=== PATIENT | female | born 1960 | race Caucasian/White ===

== ENCOUNTER 2019-09-28 14:15 | Outpatient (CLI) | payer BC, SELFPAY ==
--- NOTE | 2019-09-28 14:23 | ECG_ITS ---
Measurements Intervals [place] Rate: 73 P: 39 LA: 178 QRS: -4 QRSD: 97 T: 30 QT: 378 QTc: 418 Interpretive Statements SINUS RHYTHM LOW QRS VOLTAGE IN PRECORDIAL LEADS BORDERLINE ECG Electronically Signed On 09-28-2019 14:50:55 MULTIGRAPH OPERATOR by jL Stephens D.O.
[2019-09-28 15:06] LABS: Basophils Percent Auto 0.4 % (0.2-1.2); Eosinophils Absolute Auto 0.2 K/mm3 (0-0.3); Eosinophils Percent Auto 2.4 % (0-4.4); Hematocrit 38.8 % (37.0-47.0); Hemoglobin 12.9 g/dL (12.0-15.0); Immature Granulocyte Absolute 0.02 K/mm3 (0.00-0.031); Immature Granulocyte Percent A 0.3 % (0-0.5); Lymphocytes Absolute Auto 2.98 K/mm3 (0.9-3.2); Lymphocytes Percent Auto 39.6 % (18.3-44.2); Mean Corpuscular HGB Conc 33.2 g/dl (32-36); Mean Corpuscular Hemoglobin 29.1 pg (26-34); Mean Corpuscular Volume 87.6 fl (80-100); Mean Platelet Volume 10.5 fl (7.4-10.4); Monocytes Absolute Auto 0.6 K/mm3 (0.1-0.6); Monocytes Percent Auto 8.4 % (2.6-8.5); Neutrophils Absolute Auto 3.7 K/mm3 (1.3-6.7); Neutrophils Percent Auto 48.9 % (45.5-73.1); Platelet Count Result 285 k/mm3 (150-375); Red Blood Count 4.43 M/mm3 (4.2-5.4); Red Cell Distribution Width 12.2 % (11.5-14.5); White Blood Count 7.5 K/mm3 (4.5-10.0)
[2019-09-28 15:12] LABS: Alanine Aminotransferase 36 U/L (4-35); Albumin Level 4.1 g/dL (3.5-5.1); Alkaline Phosphatase 74 U/L (38-126); Aspartate Amino Transferase 34 U/L (14-36); Bilirubin,Total 0.2 mg/dL (0.2-1.3); Blood Urea Nitrogen 18 mg/dL (7-17); Calcium 9.6 mg/dL (8.4-10.2); Carbon Dioxide 27 mmol/L (22-30); Chloride 100 mmol/L (98-107); Estimated Glomerular Filt Rate > 60; Glucose 111 mg/dL (65-105); Potassium 3.8 mmol/L (3.4-5.0); Sodium 140 mmol/L (137-145)
== END 2019-09-28 14:16 | disposition home or self-care (01) ==
LOC: ANHSURGERY 14:23
PROVIDERS: PCP Family Medicine; Visit Provider Student in an Organized Health Care Education/Training Program
DX: R10.2 Pelvic and perineal pain (principal); I10 Essential (primary) hypertension; R94.31 Abnormal electrocardiogram [ECG] [EKG]
CPT/HCPCS: 36415; 80053; 85025; 86850; 86900; 86901; 93005

== ENCOUNTER 2019-10-01 02:59 | Day surgery (SDC) | payer BC, SELFPAY ==
[2019-09-27 15:01] VITALS: BMI 39.9
[2019-10-01] VITALS (16 sets, daily range): BP systolic 114–145; BP diastolic 50–84; PULSE 60–91; RESP 15–21; TEMP 36.2–37; O2SAT 93–100
--- NOTE | 2019-10-01 08:33 | PM.IMHP ---
H&P: HPI History of Present Illness Chief complaint: pelvic pain,thick endometrium,uterine polyp Narrative: Meera Sinha is a 59 year old female who presents with pelvic pain. Pt initially presented to the ER for pelvic pain and received a pelvic US that showed abnormally thickened endometrium and a uterine polyp. Endometrial biopsy showed benign polyp and no hyperplasia. Pt continues to have pelvic pain and would like definitive management. Review of Systems Review of Systems: All systems reviewed & are unremarkable except as noted in HPI and below Meds Home Medications and Allergies Home Medications Medication Instructions Recorded Confirmed Type citalopram 20 mg PO DAILY 09/27/19 09/27/19 History lisinopril 10 mg PO DAILY 09/27/19 09/27/19 History Allergies Allergy/AdvReac Type Severity Reaction Status Date / Time acetaminophen Allergy Mild GET Verified 09/27/19 14:52 LIGHTHEADED codeine Allergy Mild DIZZINESS Verified 09/27/19 14:52 Penicillins Allergy Mild HIVES,ITCHI Verified 09/27/19 14:53 NG HYDROCODONE BIT Allergy Mild GET Uncoded 09/27/19 14:54 LIGHTHEADED AND NAUSEA Exam Const: General: comfortable and no acute distress Neck: Thyroid: thyroid normal Resp: Effort & Inspection: normal respiratory effort Auscultation: clear to auscultation bilaterally Cardio: Rate: regular rate Rhythm: regular rhythm GI: Inspection: non-distended GI Palp: Yes Soft to palpation, No Tenderness to palpation present (GI) and No Guarding due to palpation present (GI) Auscultation: normal bowel sounds : Speculum Exam - Vagina: normal appearance of the vagina Speculum Exam - Cervix: normal appearance of the cervix Bimanual exam- vagina & uterus: No Cervical tenderness present and tender Other: bimanual exam limited by body habitus Extrem: General: normal to inspection Psych: Mental Status: mental status grossly normal Affect: normal affect Assessment and Plan Assessment and plan (1) Pelvic pain: Code(s): R10.2 - Pelvic and perineal pain Status: Acute (2) Fibroid uterus: Code(s): D25.9 - Leiomyoma of uterus, unspecified Status: Acute Assessment and Plan: uterus measuring 8x3.4x5.2 cm with 5cm anterior fibroid pt c/o persistent pelvic pain desires defintive management, plan for robotic assisted TLH/BSO
[2019-10-01] MEDS: LACTATED RINGERS 1,000 ML 30 ML IV CONT ×3 (11:10→15:30)
--- NOTE | 2019-10-01 11:11 | P.PNAN_ITS ---
Anes - Initial Pre Proc Eval Procedure: Operation Date: 10/01/19 12:00 Proposed Procedures p Robotic Assisted Total Laparoscopic Hysterectomy, Bilateral Salpingo- Oophorectomy - Alejo Santos MD Date/Time: 10/01/19 11:11 Surgeon: Alejo Santos MD Pre Op Diagnosis: pelvic pain,thick endometrium,uterine polyp Patient Data Age: 59 Gender: F Height: 5 ft 2 in Weight: 99.1 kg Allergies Allergy/AdvReac Type Severity Reaction Status Date / Time acetaminophen Allergy Mild GET Verified 09/27/19 14:52 LIGHTHEADED codeine Allergy Mild DIZZINESS Verified 09/27/19 14:52 Penicillins Allergy Mild HIVES,ITCHI Verified 09/27/19 14:53 NG HYDROCODONE BIT Allergy Mild GET Uncoded 09/27/19 14:54 LIGHTHEADED AND NAUSEA Home Medications Medication Instructions Recorded Confirmed Type citalopram 20 mg PO DAILY 09/27/19 10/01/19 History lisinopril 10 mg PO DAILY 09/27/19 10/01/19 History Patient hx anesthesia problems: none Family hx anesthesia problems: none [facility] Past Medical History Medical History Depression Hypertension Morbid obesity Anes - Eval Final PreProcedure Day of Procedure 10/01/19 11:11 Patient weight: morbidly obese Heart: regular rate and rhythm Lungs: clear to auscultation Airway: Mallampati scale class II Neurological: alert and oriented Last oral intake: >/= 8 hours ASA classification: III Emergent: no Anesthetic plan: proceed Anesthesia type and monitoring: general ETT and standard monitoring Informed Consent: The patient's anesthetic plan and its attendant risks and benefits were discussed with the patient/family/POA. Questions were solicited and answers provided to the satisfaction of the patient/family/POA.
[2019-10-01] MEDS: CLINDAMYCIN 900 MG/NS 50 ML 900 MG/50 ML PIGGYBACK 50 MG IVPB (12:07)
[2019-10-01] MEDS: LIDO 1%/EPINEPHRINE 1:100,000 20 ML VIAL INFILTRATE (13:00)
--- NOTE | 2019-10-01 14:32 | SUR.OPER ---
[id number]
--- NOTE | 2019-10-01 14:46 | PM.PROC ---
Procedure Note - Detailed Date of procedure: 10/01/19 Pre-op diagnosis: pelvic pain,thick endometrium,uterine polyp Procedure performed: Robotic assisted total laparoscopic hysterectomy bilateral salpingo-oophorectomy, 45 min of lysis of adhesions, cystoscopy Description of procedure: PROCEDURE IN DETAIL: After the patient was appropriately consented she was taken to the operating room where she was transferred to the table in a dorsal supine position. General anesthesia was then induced with endotracheal intubation. The patient was transferred to a dorsal lithotomy position using adjustable yellow-fin stirrups. Her position was adjusted for appropriate support of her lower back and lower extremities. The patient was prepped and draped. A transurethral hussein catheter was place. The cervix was sequentially dilated and a 8cm FRANCOISE uterine manipulator placed in typical fashion about a 3 cm AMARILIS ring. Gloves were changed. After confirmation of a functioning orogastric tube, lidocaine was injected at Rodriguez's point in the LUQ and a 5mm incision was made. A 5mm Optiview trocar was then inserted into the abdominal cavity under direct visualization and done so without complication. The abdomen was then insufflated with approximately 2-3L of CO2 establishing a pneumoperitoneum and the patient was placed in Trendelenburg position. Just above the umbilicus in the midline, a 10mm incision made after injection of lidocaine and a 8mm bladeless trocar advanced into the abdominal cavity under direct visualization without incident. We subsequently placed two robotic ports in a similar fashion, one in the left mid-quadrant and one in the right, 10cm lateral to the midline port. The robot was then docked. Upon evaluation of the pelvis, dense omental adhesions were noted along the posterior aspect of the uterus. Extensive lysis of adhesions was performed using blunt dissection and monopolar scissors. The uterus was also noted to be adherent to the anterior abdominal wall at the right cornual aspect near the insertion of the right fallopian tube. These adhesions were taken down bluntly. A large anterior uterine fibroid was noted to extend in to the right broad ligament. The Left round ligament was divided and the pararectal and paravesicle spaces developed, identifying the course of the ureter. The infundibulopelvic ligaments were skeletonized, triply coagulated and then transected with monopolar malik away from the course of the ureter. The posterior aspect of the broad ligament was then skeletonized down to the level of the internal cervical os, mobilizing the ureter laterally. The bladder flap was then created sharply. The ipsilateral uterine artery was skeletonized, bipolar cauterized and transected. A similar procedure was performed on the contralateral side, developing the pelvic spaces, coagulating and dividing the IP away from the ureter, completing the bladder flap, and skeletonizing, ligating, and dividing the uterine artery on this side. This dissection was done carefully as the uterine fibroid had distorted normal anatomy. The dissection was perfomed intamitely close the the ureter. The ureter was dissected out to the level of the uterine arter with direct visualization the whole time. We ensured the vaginal pneumo-occluder balloon was insufflated and made a circumferential colpotomy using monopolar current. The uterus, cervix, bilateral tubes and ovaries were then delivered transvaginally. I then re-approximated the colpotomy with a single interuppted 0-vicryl at the left apex and running #1 PDO Barbed suture in 2 layers. Following this dissection, the abdomen and pelvis were copiously irrigated and all surgical sites found to be hemostatic. The vaginal cuff was covered with Hemoderm to ensure hemostasis. Skin sites were reapproximated with 4-0 Vicryl in a subcuticular fashion. Dermabond was placed. The patient then received methylene blue IV in preparation of cystoscopy to evaluate taylor
[2019-10-01] MEDS: DEXTROSE 5%/0.45% SOD CHL 1,000 ML 125 ML IV CONT (16:43)
[2019-10-01] MEDS: IBUPROFEN IV 800 MG/200 ML 800 MG/200 ML BAG 400 MG IVPB (17:55)
[2019-10-01] MEDS: IBUPROFEN 600 MG TABLET PO (23:26)
[2019-10-02 04:46] VITALS: BP 119/56; PULSE 64; RESP 18; TEMP 36.8
[2019-10-02 05:35] LABS: Basophils Percent Auto 0.1 % (0.2-1.2); Hematocrit 35.8 % (37.0-47.0); Hemoglobin 11.9 g/dL (12.0-15.0); Immature Granulocyte Absolute 0.05 K/mm3 (0.00-0.031); Immature Granulocyte Percent A 0.3 % (0-0.5); Lymphocytes Absolute Auto 1.76 K/mm3 (0.9-3.2); Lymphocytes Percent Auto 12.3 % (18.3-44.2); Mean Corpuscular HGB Conc 33.2 g/dl (32-36); Mean Corpuscular Hemoglobin 29.5 pg (26-34); Mean Corpuscular Volume 88.8 fl (80-100); Mean Platelet Volume 10.5 fl (7.4-10.4); Neutrophils Absolute Auto 11.5 K/mm3 (1.3-6.7); Neutrophils Percent Auto 80.3 % (45.5-73.1); Platelet Count Result 276 k/mm3 (150-375); Red Blood Count 4.03 M/mm3 (4.2-5.4); Red Cell Distribution Width 12.5 % (11.5-14.5); White Blood Count 14.3 K/mm3 (4.5-10.0)
[2019-10-02 05:54] LABS: Blood Urea Nitrogen 11 mg/dL (7-17); Calcium 9.4 mg/dL (8.4-10.2); Carbon Dioxide 27 mmol/L (22-30); Chloride 103 mmol/L (98-107); Estimated CRCL calculation 96 ml/min; Estimated Glomerular Filt Rate > 60; Glucose 115 mg/dL (65-105); Potassium 4.4 mmol/L (3.4-5.0); Sodium 138 mmol/L (137-145)
[2019-10-02] MEDS: IBUPROFEN 600 MG TABLET PO (07:31)
[2019-10-02] MEDS: SIMETHICONE 80 MG TAB.CHEW PO (07:32)
[2019-10-02] MEDS: CITALOPRAM HYDROBROMIDE 20 MG TABLET PO (07:33)
[2019-10-02] MEDS: DOCUSATE SODIUM 100 MG CAPSULE PO (07:33)
--- NOTE | 2019-10-02 07:36 | PM.DS ---
DS: Diagnosis Admitting Diagnosis Admitting Diagnosis: Pelvic and perineal pain Discharge Diagnosis (1) Fibroid uterus: Code(s): D25.9 - Leiomyoma of uterus, unspecified Status: Acute DS: Summary Hospital Course Hospital Course: pt was admitted after underoing robot assisted TLH/BSO for pelvic pain and uterine fribroids. The procedure was uncomplicated. The patient's pain was well controlled overnight. Her urine output was adequate. Catheter was removed and she was able to void spontaneously. She is ambulating. She denies N/V. She reports passing flatus. Status at Discharge Functional status at discharge: independent ambulation Overall status at discharge: patient is progressing back to baseline Time Spent with Patient Time attestation: Total time spent providing and/or coordinating discharge services: Time spent: Less than 30 minutes Exam Const: General: comfortable and no acute distress Resp: Effort & Inspection: normal respiratory effort Auscultation: clear to auscultation bilaterally Cardio: Rate: regular rate Rhythm: regular rhythm GI: Inspection: non-distended GI Palp: Yes Soft to palpation, No Firmness to palpation present (GI), Yes Tenderness to palpation present (GI) (midly tender over incisions) and No Guarding due to palpation present (GI) Auscultation: normal bowel sounds Urinary Catheter: Urinary Catheter: urine clear Skin: General skin exam: normal color Extrem: General: normal to inspection Psych: Mental Status: mental status grossly normal Affect: normal affect DS: Data Data Completed and Pending Pending studies at discharge: Pending at discharge 10/01/19 14:04 Surgical [PTH] Routine Labs on day of discharge: Labs from last 24 hours 10/02/19 10/02/19 05:04 05:04 WBC 14.3 H RBC 4.03 L Hgb 11.9 L Hct 35.8 L MCV 88.8 MCH 29.5 MCHC 33.2 RDW 12.5 Plt Count 276 MPV 10.5 H Immature Gran % (Auto) 0.3 Neut % (Auto) 80.3 H Lymph % (Auto) 12.3 L [place] % (Auto) 7.0 Eos % (Auto) 0.0 Baso % (Auto) 0.1 L Lymph # (Auto) 1.76 [place] # (Auto) 1.0 H Eos # (Auto) 0.0 Baso # (Auto) 0.0 Abs Immat Gran (auto) 0.05 H Absolute Neuts (auto) 11.5 H Absolute Nucleated RBC 0.0 Nucleated RBC % 0.0 Sodium 138 Potassium 4.4 Chloride 103 Carbon Dioxide 27 BUN 11 D Creatinine 0.60 L Estim Creat Clear Calc 96 Estimated GFR > 60 Glucose 115 H Calcium 9.4 Discharge Plan Discharge Patient Disposition: Home, Self-Care Patient Instructions: Laparoscopic Hysterectomy (DC) Follow-up/Referrals: Alejo Santos MD [Physician] - 2 Weeks Discharge Medications: New oxycodone-acetaminophen 5-325 mg Tablet 1 tablet PO Q4H PRN (Reason: Pain Rated 7-10) Qty: 30 RF: 0 docusate sodium 100 mg Capsule 100 mg PO BID Qty: 60 RF: 0 ibuprofen 600 mg Tablet 600 mg PO Q6H PRN (Reason: Cramping) Qty: 30 RF: 0 Continued citalopram 20 mg Tablet 20 mg PO DAILY RF: 0 lisinopril 10 mg Tablet 10 mg PO DAILY RF: 0 Primary Care Provider: Dominic,Henry Sawyer Attending physician on admission: Alejo Santos
[2019-10-02 08:00] VITALS: BP 98/34; PULSE 66; RESP 18; TEMP 36.8
[2019-10-02 09:00] VITALS: BP 106/56
--- NOTE | 2019-10-02 09:49 | WPDANESPN ---
Anes - Prog Note Post-Op Date/Time: 10/02/19 09:49 Cardiovascular status: normal Respiratory status: normal Airway patency: baseline Mental status: baseline Post-Op hydration status: normal Vital Signs: Last Vital Signs Temp 36.8 C 10/02/19 04:46 Pulse 64 10/02/19 04:46 Resp 18 10/02/19 04:46 BP 119/56 L 10/02/19 04:46 Pulse Ox 99 10/01/19 18:00 I/O: Intake & Output 10/01/19 10/02/19 10/02/19 23:59 07:59 15:59 Intake Total 275 2200 Output Total 175 3625 Balance 100 -1425 Laboratory Tests 10/02/19 05:04 10/02/19 05:04 10/02/19 10/02/19 05:04 05:04 WBC 14.3 H RBC 4.03 L Hgb 11.9 L Hct 35.8 L MCV 88.8 MCH 29.5 MCHC 33.2 RDW 12.5 Plt Count 276 MPV 10.5 H Immature Gran % (Auto) 0.3 Neut % (Auto) 80.3 H Lymph % (Auto) 12.3 L [place] % (Auto) 7.0 Eos % (Auto) 0.0 Baso % (Auto) 0.1 L Lymph # (Auto) 1.76 [place] # (Auto) 1.0 H Eos # (Auto) 0.0 Baso # (Auto) 0.0 Abs Immat Gran (auto) 0.05 H Absolute Neuts (auto) 11.5 H Absolute Nucleated RBC 0.0 Nucleated RBC % 0.0 Sodium 138 Potassium 4.4 Chloride 103 Carbon Dioxide 27 BUN 11 D Creatinine 0.60 L Estim Creat Clear Calc 96 Estimated GFR > 60 Glucose 115 H Calcium 9.4 Post-procedural complaints: none Patient Feedback: Patient satisfied with anesthetic care.
--- NOTE | 2019-10-02 10:42 | PC.NURSE ---
Discharge instructions given to pt. including instructions to call Dr. Sanchez office on Friday and make appt. for [address] Sanchez. at side. No questions or concerns verbalized. Very pleasant and cooperative.
[2019-10-02 11:45] VITALS: BP 146/74; PULSE 74; RESP 18; TEMP 36.8
[2019-10-02 12:00] VITALS: BP 106/68
== END 2019-10-02 12:05 | disposition home or self-care (01) ==
LOC: ANHSURGERY 10:20 → ANHOB2 16:12
PROVIDERS: PCP Family Medicine; Visit Provider Student in an Organized Health Care Education/Training Program
PROC: (CPT 58552; principal; 2019-10-01 12:00)
DX: D25.1 Intramural leiomyoma of uterus (principal); N80.0 Endometriosis of uterus; D27.1 Benign neoplasm of left ovary; D27.0 Benign neoplasm of right ovary; N73.6 Female pelvic peritoneal adhesions (postinfective); I10 Essential (primary) hypertension; F32.9 Major depressive disorder, single episode, unspecified; E66.01 Morbid (severe) obesity due to excess calories; Z68.41 Body mass index [BMI] 40.0-44.9, adult; R10.2 Pelvic and perineal pain
CPT/HCPCS: 58552; S2900; 36415; 80048; 85025; 88307; 99199; A9270; J0131; J1100; J1170; J1580; J1741; J2250; J2405; J2704; J2710; J3010; J7030; J7120; Q9968

== ENCOUNTER 2024-11-26 09:34 | Emergency (ER) | payer BC, SELFPAY ==
--- NOTE | ~2024-11-26 | CT_ITS ---
Non-contrast Head CT History: Dizziness, blurry vision Technique: Axial non-contrast imaging of the brain was performed. Dose reduction technique was used on this scan by utilizing automated exposure control and iterative reconstruction technique. The dose -length product (DLP) was 605.33 mGy-cm. Findings: There is no evidence of intracranial hemorrhage, mass lesion, or acute infarct. Brain par enchyma appears normal. The ventricles and subarachnoid spaces are normal in size. The calvarium ap pears normal. The visualized paranasal sinuses and mastoid air cells are clear. Impression: No significant abnormality seen. Reviewed, dictated and finalized at location . Impression: No significant abnormality seen.
--- OUTSIDE RECORDS SUMMARY | 2024-11-26 09:37 | XMS_ITS | Clinical Summary ---
Author Organization [facility] Address [address] [place] [address] Care Team Providers Care Electrical And Instrument Engineer Name Role Phone Jose العلي MD Primary Care Provider [phone] Allergies Active Allergy Reactions Criticality Noted Date Comments Codeine Nausea and Vomiting 08/03/2021 Penicillins Hives 08/03/2021 Medications lisinopril 10 MG tablet Take 1 tablet (10 mg total) by mouth daily. Active citalopram 20 MG tablet Take 1 tablet (20 mg total) by mouth daily. Active Active Problems No known active problems Family History Medical History Relation Comments Breast Cancer Other paternal cousin Relation Status Comments Other Alive Social History Tobacco Use Types Packs/Day Years Used Date Smoking Tobacco: Never Smokeless Tobacco: Never Alcohol Use Standard Drinks/Week Comments Not Currently 0 (1 standard drink = 0.6 oz pur e alcohol) Comments Unknown Sex and Gender Information Value Date Recorded Sex Assigned at Not on file Legal Sex Female 9:22 PM CDT Gender Identity Not on file Sexual Orientation Not on file Last Filed Vital Signs Vital Sign Reading Time Taken Comments Blood Pressure 141/64 06/01/2023 10:00 AM CDT Pulse 77 06/01/2023 10:00 AM CDT Temperature 36.3 C (97.4 F) 06/01/2023 8:09 AM CDT Respiratory Rate 10 06/01/2023 10:00 AM CDT Oxygen Saturation 98% 06/01/2023 10:00 AM CDT Inhaled Oxygen Concentration - - Weight 99.8 kg (220 lb) 06/01/2023 8:09 AM CDT Height 154.9 cm (5' 1 ) 06/01/2023 8:09 AM CDT Body Mass Index 41.57 06/01/2023 8:09 AM CDT Plan of Treatment Health Maintenance Due Date Last Done Comments Cervical Cancer Screening Pa p Smear (Age 30 to 64) Every 3 Years 1961 Colorectal Cancer Screening Colonoscopy (10 Years) 1961 Annual Physical 01/10/1964 Hepatitis C 1979 DTaP, Tdap and Td Vaccines ( 1 - Tdap) 01/10/1980 Cervical Cancer Screening Pa p with HPV Testing (Age 30 to 64) Every 5 Years 1991 Cervical Cancer Screening wi th HPV 1991 Pneumococcal Vaccine: 50+ Years (1 of 1 - PCV) 2011 Zoster Vaccines (1 of 2) 2011 RSV Immunization or 60+ Years (1 - Risk 60-74 years 1-dose series) 2021 Mammogram Screening 07/06/2021 07/06/2019 COVID-19 Vaccine (3 - 2023-2 5 season) 2024 04/27/2021, 04/06/2021 Meningococcal B Vaccine Aged Out No l onger eligible based on patient's age to complete this topic Meningococcal Vaccine Aged Out No manoj jason eligible based on patient's age to complete this topic RSV Immunizations Under 20 Months Aged Out No longer eligible b ased on patient's age to complete this topic Procedures Procedure Name Priority Date/Time Associated Diagnosis Comments MG SCREENING W MORRO JUDY DIGI Routine 07/06/2019 8:58 AM PULVERIZER FEEDER Visit for screening mammogram from Last 3 Months or Most Recently Relevant to Health Maintenance Results * MG SCREENING W MORRO JUDY DIGI (07/06/2019 8:58 AM PULVERIZER FEEDER) Anatomical Region Laterality Modality Breast Bilateral Mammography 07/09/2019 9:05 AM PULVERIZER FEEDER Impressions 07/09/2019 9:10 AM PULVERIZER FEEDER IMPRESSION: No interval features to suggest malignancy. In the absence of clinical symptoms, return for annual screening due in one year. RECOMMENDATION: Routine Screening, BILATERAL in 1 year ASSESSMENT: BI-RADS 2 - BENIGN FINDING(S) Interpreted By: Robyn Byrne MD, 07/09/2019 9:05 AM Narrative 07/09/2019 9:10 AM PULVERIZER FEEDER EXAMINATION: BILATERAL SCREENING MAMMOGRAPHY CLINICAL INDICATION: 59 years of age female routine screening. COMPARISON: Screening mammogram(s) 05/28 and 02/22 TECHNIQUE: Digital CC & MLO views. Tomosynthesis imaging acquisition Study read with the assistance of a computer-aided detection system. TISSUE DENSITY: The breast tissue is almost entirely fatty. FINDINGS: Few punctate scattered calcifications. Better visualized partially imaged fatty right axillary lymph node attributed to differences in technique density more posterior tissue. No suspicious grouping of microcalcifications, architectural distortion, or new dominant suspicious nodule 3 dimensionally demonstrated in either breast. Adrianne Watt Arron [employer] MAMMO Final Re sult from Last 3 Months or Most Recently Relevant to Health Maintenance Insurance Care Teams Electrical And Instrument Engineer Relationship Specialty Start Date End Date Jose العلي MD [address] [place] [phone] PCP - General FAMILY PRACTICE 01/02/21
[2024-11-26 10:19] VITALS: BP 161/83; PULSE 93; RESP 20; TEMP 36.6; O2SAT 97
[2024-11-26 10:30] VITALS: BP 140/72; PULSE 94; RESP 19; O2SAT 96
--- NOTE | 2024-11-26 10:58 | ED_ITS ---
HPI - Eye Problem General Chief complaint: Eye Problems Stated complaint: Visual changes Time Seen by Provider: 11/26/24 10:58 Source: patient Mode of arrival: ambulatory Limitations: no limitations History of Present Illness HPI Narrative: This is a 64 year old female who presents to the ED for chief complaint of blurry vision episode that happened just prior to arrival. Patient reports that she was driving down the road when she started having blurry vision to both eyes. It felt like this signs were very brief. She states that she BN to freak out and started feeling dizzy and lightheaded. States that she was able to come to the ER and while waiting to be seen, the blurry vision has resolved. Denies any unilateral or bilateral vision loss. Denies diplopia. Denies numbness, weakness, headache, eye pain, neck pain, chest pain, shortness of breath. Related Data Home Medications ?Medication ?Instructions ?Recorded ?Confirmed ?Last Taken ?Type citalopram 20 mg tablet 20 mg PO DAILY 09/27/19 10/01/19 10/01/19 08:00 History lisinopril 10 mg tablet 10 mg PO DAILY 09/27/19 10/01/19 09/30/19 08:00 History Allergies Allergy/AdvReac Type Severity Reaction Status Date / Time crab Allergy Severe Difficulty Verified 11/26/24 10:24 Breathing codeine Allergy Mild DIZZINESS Verified 11/26/24 10:24 hydrocodone Allergy Mild GETS LIGHT Verified 11/26/24 10:24 HEADED AND NAUSEA Penicillins Allergy Mild HIVES,ITCHI Verified 11/26/24 10:24 NG Review of Systems 2 Review of Systems: All systems as dictated in [facility] Past Medical History Medical History (Updated 11/26/24 @ 12:39 by Edgar Brink PA-C) Depression Morbid obesity Hypertension Exam 2 Narrative: GENERAL: Well-appearing, well-nourished, and in no acute distress. HEAD: Normocephalic, atraumatic. EYES: PERRLA and EOMI. ENT: Nares clear, no rhinorrhea or epistaxis. Mucous membranes moist. Oropharynx without tonsillar hypertrophy exudate or other lesions. NECK: Supple. No adenopathy or masses. CHEST: No respiratory distress. Clear to auscultation. No wheezes rales or rhonchi HEART: Regular rate and rhythm. No murmur heard. Normal peripheral pulses. ABDOMEN: Soft, nontender, nondistended, normal active bowel sounds. MSK: Normal range of motion. No edema. SKIN: Warm, dry, no rash. NEURO: Alert and oriented x4. No focal deficits. PSYCH: Normal mood and affect. Course Vital Signs Vital signs: Vital Signs Temperature 97.8 F 11/26/24 10:19 Pulse Rate 93 11/26/24 10:19 Respiratory Rate 20 11/26/24 10:19 Blood Pressure 161/83 H 11/26/24 10:19 Pulse Oximetry 97 11/26/24 10:19 Oxygen Delivery Room Air 11/26/24 10:19 Temperature 97.8 F 11/26/24 10:19 Pulse Rate 98 11/26/24 12:12 Respiratory Rate 20 11/26/24 12:12 Blood Pressure 170/89 H 11/26/24 12:12 Pulse Oximetry 98 11/26/24 12:12 Oxygen Delivery Room Air 11/26/24 10:19 MDM - Eye Problem MDM Narrative Medical decision making narrative: This is a 64-year-old female who presents to the ED for chief complaint of a episode of blurred vision today. Vitals on arrival are showing elevated blood pressure but otherwise normal. No signs of emergent hypertension today. Lab work and CT brain are negative for any acute or concerning findings today. advised patient to follow-up with PCP regarding her elevated blood pressure. Will prescribe her lisinopril that she took many years ago but stopped on her own. Also encouraged follow-up with eye doctor for an official exam. She does not have any signs or symptoms of stroke today. Low concern for emergent intracranial Or ocular pathology.. Patient will be discharged in stable condition. Supportive measures discussed and return precautions given. Patient is understanding and agreeable with plan for discharge with PCP follow-up. Lab Data 11/26/24 11:16 11/26/24 11:16 Labs: Lab Results 11/26/24 Range/Units 11:16 WBC 9.2 (4.5-10.0) K/mm3 RBC 4.96 (4.2-5.4) M/mm3 Hgb 14.2 (12.0-15.0) g/dL Hct 43.9 (37.0-47.0) % MCV 88.5 (80-100) fl MCH 28.6 (26-34) pg MCHC 32.3 (32-36) g/dl RDW 13.0 (11.5-14.5) % Plt Count 338 (150-375) k/mm3 MPV 10.0 (7.4-10.4) fl Immature Gran % (Auto) 0.4 (0-0.5) % Neut % (Auto) 63.2 (45.5-73.1) % Lymph % (Auto) 25.9 (18.3-44.2) % [place] % (Auto) 8.7 H (2.6-8.5) % Eos % (Auto) 1.4 (0-4.4) % Baso % (Auto) 0.4 (0.2-1.2) % Lymph # (Auto) 2.39 (0.9-3.2) K/mm3 [place] # (Auto) 0.8 H (0.1-0.6) K/mm3 Eos # (Auto) 0.1 (0-0.3) K/mm3 Baso # (Auto) 0.0 (0.0-0.1) K/mm3 Abs Immat Gran (auto) 0.04 H (0.00-0.031) K/mm3 Absolute Neuts (auto) 5.8 (1.3-6.7) K/mm3 Absolute Nucleated RBC 0.000 (0.0-0.012) K/mm3 Nucleated RBC % 0.0 (0.0-0.2) % Sodium 139 (137-145) mmol/L Potassium 4.2 (3.4-5.0) mmol/L Chloride 104 (98-107) mmol/L Carbon Dioxide 27 (22-30) mmol/L Anion Gap 8 (4-12) mmol/L BUN 15 (7-17) mg/dL Creatinine 0.93 (0.7-1.0) mg/dL Estim Creat Clear Calc 61 ml/min Estimated GFR > 60 (59 - ) Glucose 120 H (65-110) mg/dL Calcium 10.1 (8.4-10.2) mg/dL Total Bilirubin 0.3 (0.2-1.3) mg/dL AST 42 H (14-36) U/L ALT 43 H (6-35) U/L Alkaline Phosphatase 89 (38-126) U/L Total Protein 8.0 (6.3-8.2) g/dL Albumin 4.3 (3.5-5.1) g/dL Discharge Plan Discharge Clinical Impression: Blurred vision Patient Disposition: Home Condition: Stable Instructions: Antibiotic Form Additional Instructions: Exam and imaging today are reassuring. Please make sure they are following up with your PCP regarding blood pressure control as well as a shipping helper for vision changes. If you have any new or worsening symptoms please return to the ER for further evaluation. Patient Language: [place] Prescriptions: New lisinopril 10 mg tablet 10 mg PO DAILY Qty: 30 0RF No Action citalopram 20 mg Tablet 20 mg PO DAILY lisinopril 10 mg Tablet 10 mg PO DAILY oxycodone-acetaminophen 5-325 mg Tablet 1 tablet PO Q4H PRN (Reason: Pain Rated 7-10) Qty: 30 0RF docusate sodium 100 mg Capsule 100 mg PO BID Qty: 60 0RF ibuprofen 600 mg Tablet 600 mg PO Q6H PRN (Reason: Cramping) Qty: 30 0RF Follow-up/Referrals: Dominic,Henry Sawyer MD [Primary Care Provider] - Time of Disposition: 12:40
[2024-11-26 11:00] VITALS: BP 137/78; PULSE 98; RESP 18; O2SAT 98
--- OUTSIDE RECORDS SUMMARY | 2024-11-26 11:19 | XMS_ITS | Clinical Summary ---
Author Organization [facility] Address [address] [place] [address] Care Team Providers Care Scientific Programmer Analyst Name Role Phone Jose العلي MD Primary Care Provider [phone] Allergies Active Allergy Reactions Criticality Noted Date [...] MORRO JUDY DIGI Routine 07/06/2019 8:58 AM LICENSED CLUB MANAGER Visit for screening mammogram from Last 3 Months or Most Recently Relevant to Health Maintenance Results * MG SCREENING W MORRO JUDY DIGI (07/06/2019 8:58 AM LICENSED CLUB MANAGER) Anatomical Region Laterality Modality Breast Bilateral Mammography 07/09/2019 9:05 AM LICENSED CLUB MANAGER Impressions 07/09/2019 9:10 AM LICENSED CLUB MANAGER IMPRESSION: No interval features to suggest malignancy. In the absence of clinical symptoms, return for annual screening due in one year. RECOMMENDATION: Routine Screening, BILATERAL in 1 year ASSESSMENT: BI-RADS 2 - BENIGN FINDING(S) Interpreted By: Robyn Byrne MD, 07/09/2019 9:05 AM Narrative 07/09/2019 9:10 AM LICENSED CLUB MANAGER EXAMINATION: BILATERAL SCREENING MAMMOGRAPHY CLINICAL INDICATION: 59 [...] demonstrated in either breast. Adrianne Watt Arron STAKE SETTER MAMMO Final Re sult from Last 3 Months or Most Recently Relevant to Health Maintenance Insurance Care Teams Scientific Programmer Analyst Relationship Specialty Start Date End Date Jose العلي MD [address] [place] [phone] PCP - General FAMILY PRACTICE 01/02/21
[2024-11-26 11:26] LABS: Basophils Percent Auto 0.4 % (0.2-1.2); Eosinophils Absolute Auto 0.1 K/mm3 (0-0.3); Eosinophils Percent Auto 1.4 % (0-4.4); Hematocrit 43.9 % (37.0-47.0); Hemoglobin 14.2 g/dL (12.0-15.0); Immature Granulocyte Absolute 0.04 K/mm3 (0.00-0.031); Immature Granulocyte Percent A 0.4 % (0-0.5); Lymphocytes Absolute Auto 2.39 K/mm3 (0.9-3.2); Lymphocytes Percent Auto 25.9 % (18.3-44.2); Mean Corpuscular HGB Conc 32.3 g/dl (32-36); Mean Corpuscular Hemoglobin 28.6 pg (26-34); Mean Corpuscular Volume 88.5 fl (80-100); Monocytes Absolute Auto 0.8 K/mm3 (0.1-0.6); Monocytes Percent Auto 8.7 % (2.6-8.5); Neutrophils Absolute Auto 5.8 K/mm3 (1.3-6.7); Neutrophils Percent Auto 63.2 % (45.5-73.1); Platelet Count Result 338 k/mm3 (150-375); Red Blood Count 4.96 M/mm3 (4.2-5.4); White Blood Count 9.2 K/mm3 (4.5-10.0)
[2024-11-26 11:40] LABS: Alanine Aminotransferase 43 U/L (6-35); Albumin Level 4.3 g/dL (3.5-5.1); Alkaline Phosphatase 89 U/L (38-126); Anion Gap 8 mmol/L (4-12); Aspartate Amino Transferase 42 U/L (14-36); Bilirubin,Total 0.3 mg/dL (0.2-1.3); Blood Urea Nitrogen 15 mg/dL (7-17); Calcium 10.1 mg/dL (8.4-10.2); Carbon Dioxide 27 mmol/L (22-30); Chloride 104 mmol/L (98-107); Estimated CRCL calculation 61 ml/min; Estimated Glomerular Filt Rate > 60; Glucose 120 mg/dL (65-110); Potassium 4.2 mmol/L (3.4-5.0); Sodium 139 mmol/L (137-145)
[2024-11-26 12:12] VITALS: BP 170/89; PULSE 98; RESP 20; O2SAT 98
== END 2024-11-26 12:45 | disposition home or self-care (01) ==
PROVIDERS: Emergency Provider Physician Assistant; PCP Family Medicine
DX: H53.8 Other visual disturbances (principal); I10 Essential (primary) hypertension; E66.01 Morbid (severe) obesity due to excess calories; Z68.41 Body mass index [BMI] 40.0-44.9, adult; F32.A Depression, unspecified
CPT/HCPCS: 36415; 70450; 80053; 85025; 99284